=== PATIENT | male | born 1990 | race Caucasian/White ===

== ENCOUNTER 2020-03-25 10:55 | Emergency (ER) | payer BC ==
[~2020-03-25] VITALS: Ht 180.3 cm; Wt 86.2 kg
[2020-03-25 11:00] VITALS: BP 114/77
--- NOTE | 2020-03-25 11:05 | NUR ---
AT BEDSIDE FOR EVAL.
--- NOTE | 2020-03-25 11:12 | NUR ---
INSOLE AND HEEL STIFFENER AT BEDSIDE FOR XRAY.
[2020-03-25] MEDS ORDERED: IBUPROFEN 600 MG TABLET PO ONE (11:13)
[2020-03-25] MEDS: IBUPROFEN 600 MG TABLET PO ONE (11:14)
--- NOTE | 2020-03-25 11:57 | NUR ---
Patient discharged to home in stable condition. Written and verbal after care instructions given. Patient verbalizes understanding of instruction.
== END 2020-03-25 11:59 | disposition home or self-care (01) ==
LOC: ER 10:55
DX: S90.31XA Contusion of right foot, initial encounter (principal); X58.XXXA Exposure to other specified factors, initial encounter; Y93.89 Activity, other specified; Y92.89 Other specified places as the place of occurrence of the external cause; Y99.8 Other external cause status
CPT/HCPCS: 73630-TC